=== PATIENT | female | born 1955 | race Two or more races ===

== ENCOUNTER → 2020-02-17 | Outpatient (CLI) | payer OTHER | END | disposition home or self-care (01) | LOC: OFIC 805 12:30 | PROVIDERS: ATTEND Otolaryngology | DX: R22.1 Localized swelling, mass and lump, neck (principal); R07.0 Pain in throat; J03.80 Acute tonsillitis due to other specified organisms ==

== ENCOUNTER 2020-03-02 14:12 | Outpatient (CLI) | payer OTHER | END 2020-03-02 14:30 | disposition home or self-care (01) | LOC: OFIC 805 14:12 | PROVIDERS: ATTEND Otolaryngology | DX: J03.80 Acute tonsillitis due to other specified organisms (principal); R07.0 Pain in throat ==

== ENCOUNTER 2022-02-09 10:16 | Outpatient (CLI) | payer OTHER | END 2022-02-09 10:19 | disposition home or self-care (01) | LOC: RX STUDY 10:16 | PROVIDERS: ATTEND Specialist | DX: R13.14 Dysphagia, pharyngoesophageal phase (principal) ==

== ENCOUNTER 2024-10-14 08:46 | Outpatient (CLI) | payer OTHER | END 2024-10-14 08:57 | disposition home or self-care (01) | LOC: RAD 08:46 | PROVIDERS: ATTEND Internal Medicine Pulmonary Disease | DX: M81.0 Age-related osteoporosis without current pathological fracture (principal); M79.7 Fibromyalgia; R13.10 Dysphagia, unspecified; H40.9 Unspecified glaucoma; J42 Unspecified chronic bronchitis; R68.2 Dry mouth, unspecified; H04.123 Dry eye syndrome of bilateral lacrimal glands ==